=== PATIENT | female | born 1990 | race African-American/Black ===

== ENCOUNTER 2018-10-26 17:48 | Emergency (ER) | payer MEDICAID ==
[~2018-10-26] VITALS: Ht 165.1 cm; Wt 77.0 kg
[2018-10-26 17:53] VITALS: BP 137/81
== END 2018-10-26 20:44 | disposition home or self-care (01) ==
LOC: ER 17:48
DX: T78.40XA Allergy, unspecified, initial encounter (principal); E11.9 Type 2 diabetes mellitus without complications; I10 Essential (primary) hypertension; F12.10 Cannabis abuse, uncomplicated; Z90.89 Acquired absence of other organs; X58.XXXA Exposure to other specified factors, initial encounter
CPT/HCPCS: 99281